=== PATIENT | female | born 1975 | race Caucasian/White ===

== ENCOUNTER → 2017-03-04 | Outpatient (CLI) | payer OTHER | LOC: MAMMO 13:51 | DX: Z12.31 Encounter for screening mammogram for malignant neoplasm of breast (principal) ==

== ENCOUNTER → 2017-03-15 | Outpatient (CLI) | payer OTHER | END | disposition home or self-care (01) | LOC: RAD 15:47 | DX: R50.9 Fever, unspecified (principal); R06.02 Shortness of breath; R05 Cough; R52 Pain, unspecified; R06.7 Sneezing ==

== ENCOUNTER → 2018-04-24 | Outpatient (CLI) | payer OTHER | END | disposition home or self-care (01) | LOC: MAMMO 08:43 | DX: R92.2 Inconclusive mammogram (principal); N60.19 Diffuse cystic mastopathy of unspecified breast ==

== ENCOUNTER → 2020-11-14 | Outpatient (CLI) | payer BC ==
[2020-11-14 08:16] LABS: HEMATOCRIT 40.3 % (37.0-47.0); MEAN CELL VOLUME 90.2 fl (81.0-99.0); MEAN CORPUSCULAR HGB 28.6 pg (27.0-31.0); MEAN CORPUSCULAR HGB CONC 31.8 g/dl (33.0-37.0); MEAN PLATELET VOLUME 9.3 fl (9.6-12.3); RED BLOOD COUNT 4.47 10*6/uL (4.10-5.10); WHITE BLOOD COUNT 7.1 10*3/uL (4.8-10.8)
[2020-11-14 08:44] LABS: ALBUMIN 3.8 gm/dl (3.1-4.5); ALKALINE PHOSPHATASE 52 U/L (45-117); BUN 17 mg/dl (7-24); CHLORIDE 111 mmol/L (98-107); CHOLESTEROL 181 mg/dL (<200); CREATININE 0.66 mg/dL (0.55-1.02); LDL CHOLESTEROL 114 mg/dL (9-159); POTASSIUM 3.6 mmol/L (3.5-5.1); SGOT/AST 17 IU/L (3-35); SGPT/ALT 21 U/L (12-78); SODIUM 140 mmol/L (136-145); TOTAL PROTEIN 6.8 gm/dL (6.4-8.2); TRIGLYCERIDES 90 mg/dl (<150)
== END | disposition home or self-care (01) ==
LOC: LAB 07:56
PROVIDERS: ATTEND Family Medicine
DX: R51.9 Headache, unspecified (principal); Z79.899 Other long term (current) drug therapy

== ENCOUNTER → 2020-11-17 | Outpatient (CLI) | payer BC | END | disposition home or self-care (01) | LOC: MAMMO 07:44 | PROVIDERS: ATTEND Family Medicine | DX: N60.02 Solitary cyst of left breast (principal); N63.42 Unspecified lump in left breast, subareolar; R10.2 Pelvic and perineal pain; R10.9 Unspecified abdominal pain ==

== ENCOUNTER → 2021-05-23 | Outpatient (CLI) | payer OTHER | END | disposition home or self-care (01) | LOC: RAD 12:12 | PROVIDERS: ATTEND Family Medicine | DX: M79.642 Pain in left hand (principal) ==

== ENCOUNTER → 2021-06-20 | Outpatient (CLI) | payer OTHER, BC | END | disposition home or self-care (01) | LOC: RAD 12:17 | PROVIDERS: ATTEND Family Medicine | DX: M25.532 Pain in left wrist (principal) ==

== ENCOUNTER → 2021-09-13 | Outpatient (CLI) | payer BC ==
[2021-09-13 09:39] LABS: HEMATOCRIT 41.2 % (37.0-47.0); MEAN CORPUSCULAR HGB 28.7 pg (27.0-31.0); MEAN CORPUSCULAR HGB CONC 32.3 g/dl (33.0-37.0); MEAN PLATELET VOLUME 9.5 fl (9.6-12.3); RED BLOOD COUNT 4.63 10*6/uL (4.10-5.10); WHITE BLOOD COUNT 7.6 10*3/uL (4.8-10.8)
[2021-09-13 09:57] LABS: ALKALINE PHOSPHATASE 51 U/L (45-117); BUN 15 mg/dl (7-24); CHLORIDE 114 mmol/L (98-107); CREATININE 0.85 mg/dL (0.55-1.02); POTASSIUM 3.8 mmol/L (3.5-5.1); SGOT/AST 14 IU/L (3-35); SGPT/ALT 15 U/L (12-78); SODIUM 141 mmol/L (136-145); TOTAL PROTEIN 7.2 gm/dL (6.4-8.2)
== END | disposition home or self-care (01) ==
LOC: LAB 09:18
PROVIDERS: ATTEND Family Medicine
DX: M27.8 Other specified diseases of jaws (principal)

== ENCOUNTER → 2022-10-11 | Outpatient (CLI) | payer BC ==
[2022-10-11 09:41] LABS: HEMATOCRIT 40.6 % (37.0-47.0); MEAN CELL VOLUME 94.6 fl (81.0-99.0); MEAN CORPUSCULAR HGB 30.1 pg (27.0-31.0); MEAN CORPUSCULAR HGB CONC 31.8 g/dl (33.0-37.0); MEAN PLATELET VOLUME 9.3 fl (9.6-12.3); RED BLOOD COUNT 4.29 10*6/uL (4.10-5.10); RED CELL DISTRI WIDTH 14.4 % (0-14.5); WHITE BLOOD COUNT 6.9 10*3/uL (4.8-10.8)
[2022-10-11 10:33] LABS: ALKALINE PHOSPHATASE 47 U/L (46-116); BUN 13 mg/dl (9-23); CHLORIDE 106 mmol/L (98-107); FREE T4 0.97 ng/dl (0.89-1.76); POTASSIUM 4.2 mmol/L (3.4-5.1); SGPT/ALT 14 U/L (10-49)
[2022-10-18 00:06] LABS: TESTOSTERONE FREE, (DIRECT) 0.8 pg/mL (0.0-4.2)
== END | disposition home or self-care (01) ==
LOC: MAMMO 10-02 13:30 → US 10-02 14:00 → MAMMO 00:43 → LAB 00:43 → MAMMO 08:00
PROVIDERS: ATTEND Family Medicine
DX: N63.21 Unspecified lump in the left breast, upper outer quadrant (principal); N60.01 Solitary cyst of right breast; N64.4 Mastodynia; E55.9 Vitamin D deficiency, unspecified; N95.1 Menopausal and female climacteric states; R53.83 Other fatigue; Z78.0 Asymptomatic menopausal state

== ENCOUNTER → 2023-02-13 | Outpatient (CLI) | payer BC | END | disposition home or self-care (01) | LOC: US 10:53 | PROVIDERS: ATTEND Family Medicine | DX: R10.11 Right upper quadrant pain (principal) ==

== ENCOUNTER → 2023-02-25 | Outpatient (CLI) | payer BC | END | disposition home or self-care (01) | LOC: NM 00:32 | PROVIDERS: ATTEND Family Medicine | DX: R10.11 Right upper quadrant pain (principal) ==

== ENCOUNTER 2024-03-25 16:55 | Emergency (ER) | payer BC ==
[~2024-03-25] VITALS: Ht 162.5 cm; Wt 72.6 kg
[2024-03-25] MEDS ORDERED: SODIUM CHLORIDE 0.9% 1,000 ML IV ONE (18:05)
[2024-03-25] MEDS ORDERED: MAGNESIUM SULFATE 50 ML IV ONE (18:05)
[2024-03-25 18:11] LABS: BASO # 0.1 10*3/uL (0.0-0.1); BASO % 0.7 % (0.0-1.0); EOS # 0.1 10*3/uL (0.0-0.4); HEMATOCRIT 39.8 % (37.0-47.0); MEAN CELL VOLUME 92.3 fl (81.0-99.0); MEAN CORPUSCULAR HGB 29.2 pg (27.0-31.0); MEAN CORPUSCULAR HGB CONC 31.7 g/dl (33.0-37.0); MONO # 1.1 10*3/uL (0.1-1.0); MONO % 9.4 % (3.0-9.0); NEUT # 7.7 10*3/uL (2.3-7.9); NEUT % 66.7 % (47.0-73.0); PLATELET COUNT AUTOMATED 326 10*3/uL (130-400); RED BLOOD COUNT 4.31 10*6/uL (4.10-5.10); RED CELL DISTRI WIDTH 14.5 % (0-14.5); WHITE BLOOD COUNT 11.6 10*3/uL (4.8-10.8)
[2024-03-25 18:30] LABS: ALKALINE PHOSPHATASE 57 U/L (46-116); BUN 21 mg/dl (9-23); CHLORIDE 109 mmol/L (98-107); POTASSIUM 3.5 mmol/L (3.4-5.1); SGPT/ALT 17 U/L (5-49); TOTAL PROTEIN 7.1 gm/dL (6.0-8.0)
[2024-03-25] MEDS ORDERED: Ketorolac Tromethamine 15 MG/ML VIAL IV ONE (18:50)
[2024-03-25] MEDS ORDERED: Prochlorperazine Edisylate 10 MG/2 ML VIAL IV ONE (18:55)
[2024-03-25] MEDS ORDERED: diphenhydrAMINE hydrochloride 50 MG/ML VIAL IV ONE (18:55)
[2024-03-25] MEDS ORDERED: REGLAN10 M1 PO (22:47)
[2024-03-25] MEDS ORDERED: MEDROL DOSEPAK4 MG PO (22:51)
[2024-03-25] MEDS ORDERED: AMOX-CLAV 875-1 EACH PO (22:51)
== END 2024-03-25 22:52 | disposition home or self-care (01) ==
LOC: ED 16:55
PROVIDERS: Internal Medicine
DX: G43.909 Migraine, unspecified, not intractable, without status migrainosus (principal); H92.02 Otalgia, left ear; R68.84 Jaw pain

== ENCOUNTER → 2024-04-29 | Outpatient (CLI) | payer BC ==
[~2024-04-29] MED LIST: AMOX-CLAV 875-1 EACH PO; MEDROL DOSEPAK4 MG PO; REGLAN10 M1 PO
== END | disposition home or self-care (01) ==
LOC: MRI 01:46
PROVIDERS: ATTEND Family Medicine
DX: M47.817 Spondylosis without myelopathy or radiculopathy, lumbosacral region (principal); R10.2 Pelvic and perineal pain; M54.50 Low back pain, unspecified; R20.0 Anesthesia of skin; M51.369 Other intervertebral disc degeneration, lumbar region without mention of lumbar back pain or lower extremity pain; Z90.710 Acquired absence of both cervix and uterus

== ENCOUNTER → 2024-05-05 | Outpatient (CLI) | payer BC | END | disposition home or self-care (01) | LOC: MAMMO 02:28 | PROVIDERS: ATTEND Family Medicine | DX: N64.89 Other specified disorders of breast (principal); R92.323 Mammographic fibroglandular density, bilateral breasts ==